=== PATIENT | male | born 1960 | race Caucasian/White ===

== ENCOUNTER 2022-10-23 17:07 | Emergency (ER) | payer MEDICAID ==
[2022-10-23 18:45] LABS: ESTIMATED GFR 75 mL/min (>60); TROPONIN I HIGH SENSITIVITY 14.4 pg/mL (<=60.3)
== END 2022-10-23 20:10 | disposition home or self-care (01) ==
LOC: JP.ED 17:07
DX: J18.9 Pneumonia, unspecified organism (principal); J44.1 Chronic obstructive pulmonary disease with (acute) exacerbation; I48.91 Unspecified atrial fibrillation; E78.00 Pure hypercholesterolemia, unspecified; I10 Essential (primary) hypertension; J44.9 Chronic obstructive pulmonary disease, unspecified; K21.9 Gastro-esophageal reflux disease without esophagitis; Z72.0 Tobacco use; Z79.01 Long term (current) use of anticoagulants; Z79.899 Other long term (current) drug therapy
CPT/HCPCS: 36415; 36600; 71046; 71046-26; 80053; 82803; 83605; 84484; 85025; 99284

== ENCOUNTER 2022-11-19 11:57 | Emergency (ER) | payer MEDICAID ==
[2022-11-19] MEDS ORDERED: methylPREDNISolone Sodium Succinate 125 MG/2 ML SDV IVPUSH ONE (12:26)
[2022-11-19] MEDS ORDERED: Albuterol/Ipratropium 3.0-0.5 MG/3 ML Neb Soln NEB ONE (12:26)
[2022-11-19 13:36] LABS: CORONAVIRUS COVID-19 NAA NEGATIVE (NEGATIVE)
[2022-11-19 13:49] LABS: ESTIMATED GFR 62 mL/min (>60)
[2022-11-19] MEDS ORDERED: LORazepam 2 MG/ML SDV IVPUSH ONE (13:57)
== END 2022-11-19 15:20 | disposition other institution (70) ==
LOC: JP.ED 11:57
DX: J44.1 Chronic obstructive pulmonary disease with (acute) exacerbation (principal); R09.02 Hypoxemia; F10.20 Alcohol dependence, uncomplicated; I10 Essential (primary) hypertension; I48.91 Unspecified atrial fibrillation; E78.00 Pure hypercholesterolemia, unspecified; K21.9 Gastro-esophageal reflux disease without esophagitis; Z20.822 Contact with and (suspected) exposure to COVID-19; Z72.0 Tobacco use; Z79.01 Long term (current) use of anticoagulants; Z79.899 Other long term (current) drug therapy
CPT/HCPCS: 0241U; 36415; 36600; 71045; 80053; 80307; 82803; 83605; 85025; 86140; 94640; 96374; 96375; 99285; J2060; J2930; J7620